=== PATIENT | female | born 1975 | race Caucasian/White ===

== ENCOUNTER 2016-11-06 09:37 | Emergency (ER) | payer BC ==
[2016-11-06 10:19] VITALS: BP 119/70
--- NOTE | 2016-11-06 10:47 | UC ---
HPI Febrile Illness - HPI Summary HPI Summary: complaint of feeling fatigued having chills fever and headache has several red rashes on the trunk of her body denies headache, sore throat, nasal congestion, ear pain, neck pain denies N/V/D, dysuria denies difficulties ,slight left breast pain, does have some redness on tenderness in both nipples [facility] did flu test, strep test mono and urine culture for blood in urine, they were going to treat her for mastitis but she refused treatment at that time- has lab requistition for lyme titer fever has been 103 at the highest taking some ibuprofen every 6 hours with relief no recent tick bites requesting treatment for mastitis - History of Current Complaint Chief Complaint: UCGeneralIllness Time Seen by Provider: 11/06/16 10:41 Hx Obtained From: Patient - Allergy/Home Medications Allergies/Adverse Reactions: Allergies Allergy/AdvReac Type Severity Reaction Status Date / Time No Known Allergies Allergy Verified 11/06/16 10:19 PMH/Surg Hx/FS Hx/Imm Hx Previously Healthy: Yes - Psychiatric History: Reports: Hx Anxiety, Hx Depression - Surgical History Surgery Procedure, Year, and Place: c section Infectious Disease History: No Infectious Disease History: Denies: Traveled Outside the [place] in Last 30 Days - Social History Alcohol Use: None Substance Use Type: Reports: None Smoking Status (MU): Never Smoked Tobacco Review of Systems Constitutional: Fever, Chills, Fatigue Skin: Rash Eyes: Negative ENT: Negative Respiratory: Negative Cardiovascular: Negative Gastrointestinal: Negative Genitourinary: Negative Motor: Negative Neurovascular: Negative Musculoskeletal: Negative Neurological: Headache Psychological: Negative All Other Systems Reviewed And Are Negative: Yes Physical Exam Triage Information Reviewed: Yes Appearance: No Pain Distress, Well-Nourished Vital Signs: Initial Vital Signs Temp 98.2 F 11/06/16 10:13 Pulse 93 11/06/16 10:13 Resp 20 11/06/16 10:13 BP 119/70 11/06/16 10:13 Pulse Ox 99 11/06/16 10:13 Vital Signs Reviewed: Yes Eyes: Positive: Conjunctiva Clear ENT: Positive: Pharynx normal, TMs normal Neck: Positive: No Lymphadenopathy Respiratory: Positive: Lungs clear, Normal breath sounds, No respiratory distress, No accessory muscle use Cardiovascular: Positive: RRR, No Murmur, Pulses Normal Abdomen Description: Positive: Nontender, Soft Bowel Sounds: Positive: Present Musculoskeletal: Positive: No Edema Neurological: Positive: Alert Psychological Exam: Normal Skin: Positive: Other - left breast with slight tenderness underneath nipple Course/Dx - Diagnoses Clinic Provider Diagnoses: left mastitis Discharge - Discharge Plan Condition: Stable Disposition: HOME Prescriptions: Dicloxacillin CAP* [Dynapen CAP*] 500 mg PO QID #28 cap Patient Education Materials: Mastitis (ED) Referrals: No Primary Care Phys,NOPCP [Primary Care Provider] - [facility] [Outside] Additional Instructions: Please start antibiotic as directed Increase fluids and rest Take acetaminophen for fever or pain Please review your discharge instructions. If your symptoms do not improve please call your primary care provider or return to urgent care.
== END 2016-11-06 11:07 | disposition home or self-care (01) ==
LOC: UCEAST 09:37
DX: N61.0 Mastitis without abscess (principal)
CPT/HCPCS: 99212; G0463